=== PATIENT | female | born 1930 | race Caucasian/White ===

== ENCOUNTER 2017-02-08 11:01 | Observation (INO) ==
--- NOTE | 2017-02-08 11:30 | Cat Scan Report ---
CLINICAL INFORMATION: Acute left extremity weakness question CVA: Stroke COMPARISON: None. TECHNIQUE: 2.5 mm helical slices were obtained in the skull base to vertex. Following reconstruction, axial reformatted images were reviewed at bone and parenchymal windows. FINDINGS: The ventricles, sulci, fissures, and cisterns are enlarged compatible with moderate atrophy. There is mild disproportionate ventricular enlargement suggesting the possibility of superimposed normal pressure hydrocephalus. Volume loss has progressed since the 2015 comparison study. Mild chronic ischemic changes in the deep cerebral white matter. There is no intracerebral hemorrhage, mass effect or edema. Bone windows show no osseous abnormality IMPRESSION: Moderate atrophy arising from the 2015 study. There is slight disproportionate ventricular enlargement suggesting the possibility of superimposed normal pressure hydrocephalus. No evidence of intracerebral hemorrhage edema or other acute finding.. Interpreted and Authenticated by: Migel Carter 02/08/17
[2017-02-08] MEDS ORDERED: LABETALOL 5 MG/ML ML IV ONE (11:48)
[2017-02-08 11:49] LABS: Basophils # (Auto) 0.1 K/mcL (0.0-0.3); Basophils % (Auto) 0.8 % (0.0-2.0); Eosinophils # (Auto) 0.2 K/mcL (0.0-0.7); Eosinophils % (Auto) 1.8 % (0.0-7.0); Granulocytes % (Auto) 57.6 % (38.0-78.0); Lymphocytes # (Auto) 2.9 K/mcL (1.5-4.8); Lymphocytes % (Auto) 29.1 % (15.5-49.0); Mean Cell Volume 93.2 fL (80.0-100.0); Mean Corpuscular HGB Conc 33.7 g/dL (31.0-36.0); Mean Corpuscular Hemoglobin 31.4 pg (26.0-34.0); Monocytes % (Auto) 10.7 % (1.0-12.0); Platelet Count 293 K/mcL (140-440); RBC 4.16 M/mcL (4.00-5.20); Red Cell Distribution Width 13.4 % (11.5-14.5)
[2017-02-08 12:12] LABS: Partial Thromboplastin Time 28 sec (20-37)
[2017-02-08 12:15] LABS: ALT/SGPT 15 U/l (0-40); Albumin 4.5 gm/dL (3.2-5.2); Albumin/Globulin Ratio 1.4 (1.0-2.3); Alkaline Phosphatase 82 U/L (39-117); Blood Urea Nitrogen 20 mg/dl (8-23)
--- NOTE | 2017-02-08 12:42 | Emergency Department Note ---
Neuro HPI - General Chief Complaint: Stroke Symptoms Stated Complaint: stroke symptoms Time Seen by Provider: 02/08/17 11:10 Source: patient Mode of arrival: ambulatory Limitations: no limitations - History of Present Illness HPI Narrative: 87-year-old female brought in for CVA symptoms of left arm and left leg weakness at approximately 45 minutes from [facility]. Denies loss of consciousness. Is having some slow speech but no facial symptoms. Her son is here as well and corroborates time and history - Related Data Home Medications: Home Medications Medication Instructions Recorded Confirmed loratadine 10 mg tablet 10 mg PO QDAY 07/10/16 02/08/17 traZODone HCL [Desyrel] See Label Instructions PO QIDP PRN 02/08/17 02/08/17 Previous Rx's Medication Instructions Recorded tramadol 37.5 mg-acetaminophen 325 1 tab PO TID PRN #90 tab 10/16/16 mg tablet atenolol 50 mg tablet 50 mg PO QDAY 90 Days 01/22/17 Allergies/Adverse Reactions: Allergies Allergy/AdvReac Type Severity Reaction Status Date / Time No Known Drug Allergies Allergy Verified 01/24/17 16:11 Review of Systems All systems ED: reviewed and negative except as stated. Past Medical History - Past Medical History Attestation: Yes: The following information was validated with the patient. Medical history: Reports: arthritis, dementia, hyperlipidemia, osteoporosis, other (diverticulitis, paroxysmal SVT, insomnia, lung nodule) Surgical history ED: Reports: angioplasty/stent, cataract, hip replacement, hysterectomy, orthopedic, other (right knee, carpal tunnel) Psychiatric history: Reports: depression, other (fátima) - Social History smoking status: Never smoker Drug use: Reports: none Physical Exam Thin female no acute distress. Normocephalic atraumatic. Conjunctive clear sclerae nonicteric. No nasal discharge or congestion. Oropharynx is pink and moist. Neck is supple without lymphadenopathy or thyromegaly. No carotid bruit. Heart is regular rate and rhythm no murmur appreciated. Lungs are clear to auscultation bilaterally without wheezes rales rhonchi or respiratory distress. Abdomen soft nontender nondistended. No peritoneal signs or guarding. +2 radial pulse. +2 posterior tibialis pulse. Alert oriented able to answer questions appropriately-speech is slow however and it does seem to be some short-term memory deficits on close questioning. No dysarthria ataxia or tremor. Strength testing reveals mild weakness left shoulder and upper arm strength as well as left hip and leg strength. Face is symmetrical. Cranial nerves II through XII grossly intact. - General Limitations: no limitations Course Vital Signs Temperature 98.1 F 02/08/17 11:09 Pulse Rate 84 02/08/17 11:09 Respiratory Rate 18 02/08/17 11:09 Blood Pressure 197/100 02/08/17 11:09 Pulse Oximetry (%) 99 02/08/17 11:09 Temperature 98.6 F 02/08/17 16:01 Pulse Rate 80 02/08/17 16:01 Respiratory Rate 16 02/08/17 16:01 Blood Pressure 154/72 02/08/17 16:01 Pulse Oximetry (%) 96 02/08/17 16:01 Neuro Symptoms/Deficit - Lab Data Lab results reviewed: Yes I reviewed the patient's lab results. Result diagrams: 02/08/17 11:22 02/08/17 11:21 Lab Results 02/08/17 02/08/17 02/08/17 Range/Units 11:21 11:21 11:21 WBC (4.5-11.0) K/mcL RBC (4.00-5.20) M/mcL Hgb (12.0-15.0) g/dL Hct (36.0-48.0) % POC Hct 40.0 (36.0-48.0) % MCV (80.0-100.0) fL MCH (26.0-34.0) pg MCHC (31.0-36.0) g/dL RDW (11.5-14.5) % Plt Count (140-440) K/mcL MPV (7.4-10.4) fL Gran % (38.0-78.0) % Lymph % (Auto) (15.5-49.0) % [place] % (Auto) (1.0-12.0) % Eos % (Auto) (0.0-7.0) % Baso % (Auto) (0.0-2.0) % Gran # (1.8-8.0) K/mcL Lymph # (Auto) (1.5-4.8) K/mcL [place] # (Auto) (0.1-0.9) K/mcL Eos # (Auto) (0.0-0.7) K/mcL Baso # (Auto) (0.0-0.3) K/mcL POC PT PT 12.9 (11.9-14.5) sec POC INR INR 1.0 (0.9-1.1) APTT (20-37) sec POC Sodium 142 (133-145) mmol/L Sodium 143 (133-145) mmol/L POC Potassium 3.6 (3.3-5.1) mmol/L Potassium 3.8 (3.3-5.1) mmol/L POC Chloride 104 (96-108) mmol/L Chloride 100 (96-108) mmol/L Carbon Dioxide 23 (22-30) mmol/L POC Total CO2 27 (22-30) mmol/L Anion Gap 20.0 H (8-16) POC BUN 21 (8-23) mg/dl BUN 20 (8-23) mg/dl Creatinine 0.7 (0.6-1.1) mg/dl POC Creatinine 0.6 (0.6-1.1) mg/dl GFR Calculation 78 Glucose 92 (70-105) mg/dL POC Glucose 92 (70-105) mg/dL Calcium 9.9 (8.6-10.4) mg/dl POC WB Ioniz Calcium 1.15 L (1.16-1.32) mmol/L Total Bilirubin 0.5 (0.0-1.0) mg/dL AST 24 (0-37) U/l ALT 15 (0-40) U/l Alkaline Phosphatase 82 (39-117) U/L Troponin T < 0.01 (0-0.03) ng/ml Total Protein 7.8 (5.9-8.4) gm/dL Albumin 4.5 (3.2-5.2) gm/dL Globulin 3.3 (2.2-3.7) gm/dL Albumin/Globulin Ratio 1.4 (1.0-2.3) Urine Color Urine Appearance Urine pH (5.0-9.0) Ur Specific [place] (1.000-1.035) Urine Protein (NEG) mg/dL Urine Glucose (UA) (NEG) mg/dL Urine Ketones (NEG) mg/dL Urine Occult Blood (<0.03) mg/dL Urine Nitrate (NEG) Urine Bilirubin (NEG) mg/dL Urine Urobilinogen (NEG) mg/dL Ur Leukocyte Esterase (NEG) /uL Ur Culture Indicated? 02/08/17 02/08/17 02/08/17 Range/Units 11:22 11:22 13:18 WBC 9.8 (4.5-11.0) K/mcL RBC 4.16 (4.00-5.20) M/mcL Hgb 13.0 (12.0-15.0) g/dL Hct 38.7 (36.0-48.0) % POC Hct (36.0-48.0) % MCV 93.2 (80.0-100.0) fL MCH 31.4 (26.0-34.0) pg MCHC 33.7 (31.0-36.0) g/dL RDW 13.4 (11.5-14.5) % Plt Count 293 (140-440) K/mcL MPV 8.8 (7.4-10.4) fL Gran % 57.6 (38.0-78.0) % Lymph % (Auto) 29.1 (15.5-49.0) % [place] % (Auto) 10.7 (1.0-12.0) % Eos % (Auto) 1.8 (0.0-7.0) % Baso % (Auto) 0.8 (0.0-2.0) % Gran # 5.7 (1.8-8.0) K/mcL Lymph # (Auto) 2.9 (1.5-4.8) K/mcL [place] # (Auto) 1.0 H (0.1-0.9) K/mcL Eos # (Auto) 0.2 (0.0-0.7) K/mcL Baso # (Auto) 0.1 (0.0-0.3) K/mcL POC PT TNP PT (11.9-14.5) sec POC INR TNP INR (0.9-1.1) APTT 28 (20-37) sec POC Sodium (133-145) mmol/L Sodium (133-145) mmol/L POC Potassium (3.3-5.1) mmol/L Potassium (3.3-5.1) mmol/L POC Chloride (96-108) mmol/L Chloride (96-108) mmol/L Carbon Dioxide (22-30) mmol/L POC Total CO2 (22-30) mmol/L Anion Gap (8-16) POC BUN (8-23) mg/dl BUN (8-23) mg/dl Creatinine (0.6-1.1) mg/dl POC Creatinine (0.6-1.1) mg/dl GFR Calculation Glucose (70-105) mg/dL POC Glucose (70-105) mg/dL Calcium (8.6-10.4) mg/dl POC WB Ioniz Calcium (1.16-1.32) mmol/L Total Bilirubin (0.0-1.0) mg/dL AST (0-37) U/l ALT (0-40) U/l Alkaline Phosphatase (39-117) U/L Troponin T (0-0.03) ng/ml Total Protein (5.9-8.4) gm/dL Albumin (3.2-5.2) gm/dL Globulin (2.2-3.7) gm/dL Albumin/Globulin Ratio (1.0-2.3) Urine Color Yellow Urine Appearance Cloudy Urine pH 8.0 (5.0-9.0) Ur Specific [place] 1.013 (1.000-1.035) Urine Protein Neg (NEG) mg/dL Urine Glucose (UA) Negative (NEG) mg/dL Urine Ketones Neg (NEG) mg/dL Urine Occult Blood Neg (<0.03) mg/dL Urine Nitrate Neg (NEG) Urine Bilirubin Neg (NEG) mg/dL Urine Urobilinogen Neg (NEG) mg/dL Ur Leukocyte Esterase Neg (NEG) /uL Ur Culture Indicated? No - Radiology Data Radiology results reviewed: Yes I reviewed the patient's radiology results. CT the head without contrast shows no acute findings but possible chronic mild NPH - EKG Data EKG attestation: Yes I reviewed and interpreted this EKG. EKG results narrative: EKG shows a rate of 96 with a Q-wave in 3 and aVF as well as V1. No evidence of ischemia normal sinus rhythm Disposition Pt seen by ODD BUNDLE WORKER/PA only: No Clinical Impression: Hypertensive urgency TIA (transient ischemic attack) Qualifiers: Transient cerebral ischemia type: unspecified Qualified Code(s): G45.9 - Transient cerebral ischemic attack, unspecified Summary: Elevated blood pressure was treated with labetalol 20 mg IV Initial NIH was 11 . discussed case with tele-stroke neurologist who initially felt that she needed to have TPA-she was a candidate although she did have a rectal bleed several months ago, and may benefit despite her age. However, as her symptoms mostly resolved, he backed off this recommendation and recommended further stroke workup and monitoring inpatient. I discussed this case with Dr. Marte the hospitalist who agreed to accept patient for further care and workup Disposition: Xfer As Inpt ([facility]) Condition: Fair
--- NOTE | 2017-02-08 13:37 | Internal Med History&Physical ---
Medical - H&P: HPI Patient information: Note initiated : 02/08/17 at 1:34 pm Patient: Amarilis Rodriguez 87 y/o F admitted on for stroke symptoms. History of present illness: Ms. Rodriguez is a 87 year old white female who has a fairly recent history of cognitive decline and falls, which appear to be syncopal. She apparently has had some generalized weakness, for which she has been working with physical therapy. Today, she had an early appointment over at [facility], and when she got there she apparently was having some trouble walking, and perhaps having trouble controlling her left leg. She was subsequently evaluated in our emergency room for possible acute stroke. The ER obtained a consultation with tele-stroke, who felt that her symptoms were improving, and that this might be more of a TIA than a stroke. They recommended admission for further monitoring and testing. Unfortunately, the patient is a very poor historian. She cannot quite recall why she came in today. She says she does have weakness, but that it is generalized, and thinks it has been going on for quite some time. She denies any facial droop or slurred speech today or arm weakness. She thinks perhaps her left leg is a little weaker, and that she could not walk well today, and she generally can walk. But otherwise she really cannot pinpoint any specifically new symptoms today. Her granddaughter is in the room with her, and notes that she does have some memory issues. The granddaughter also notes that the patient has been declining fairly rapidly over the last year. She has had at least 2 syncopal episodes with injury, the cause of which has not been fully discovered. She did have a recent race steward that showed a few 1.8 second pauses, in addition to 1 run of V. tach and several runs of PSVT. Her doctors did not feel that those findings explained her syncopal episodes. Head CT from the ER did not show signs of acute stroke or hemorrhage. It was suggestive of possible normal pressure hydrocephalus. Otherwise, the patient is extraordinarily vague on questioning. She does not think that she has had recent fevers or chills. She has had a mild headache today. She denies new eye or ear symptoms, sore throat or cough, dysphagia, swollen glands. She does say that she occasionally has chest tightness and shortness of breath, which seems worse when she lies down, and better when she gets up and moves around a bit. She is being worked up with Dr. Montgomery of pulmonary for bronchiectasis, and thinks the symptoms are unchanged. She denies abdominal pain, nausea or vomiting, diarrhea or constipation, incontinence, dysuria, leg swelling. Medical History Clostridium difficile diarrhea (Acute) Gastroenteritis (Acute) Memory Loss (Acute) Atelectasis (Chronic) (10/05/2014-[place])Cicatrization atelectasis of the lingula Bronchitis, chronic (Chronic) bronchiectasis seen on CT scan Cardiomegaly (Chronic) Carpal tunnel syndrome (Chronic) Nerve conduction study 05/2013. 08/2012--right carpal tunnel op. Left not operated. Closed femur fracture (Chronic) S/P right 07/2010 with postop [facility] for several weeks, which was negative. Closed fibular fracture (Chronic) Fall with fibular fracture 04/22/2012, questionable rhythm-related. Degenerative arthritis (Chronic) Multi-joint; check bilateral nerve conduction to rule out carpal tunnel. Depression (Chronic) Diverticulosis of colon (Chronic) Colonoscopy 08/11/98--Dr. Collins--diverticuli and hemorrhoids. Patient declined rescope, but never had polyps. Hyperlipidemia (Chronic) Stablized with diet. Hypertension (Chronic) Insomnia (Chronic) Lumbar compression fracture (Chronic) T12 compression fracture shown on MRI 05/2011. Lung nodule (Chronic) Mild cognitive impairment (Chronic) Mycobacterium avium complex (Chronic) Past hx with low-grade persisting cough, stable chest CTon 03/2011, review by Dr. Grigsby 04/2011. Osteoporosis (Chronic) With MRI 05/2011 showing T12 compression fracture; updated bone density still in the osteoporosis range in the spine 05/2011 with reinstitution of Evista; vitamin D level stable in 2009. 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 Rheumatoid arteritis (Chronic) Syncope, near (Chronic) Hx of near syncopal falls resulting in injuries/fractures; episode of lightheadedness. Urticaria (Chronic) Varicose veins (Chronic) Hx; operated by Dr. Bryan 06/2003; has some residual, but stable with hygienic measures. Surgical History History of biopsy (Chronic) 01/16/2008 Benign fibrosed senescent fibroadenoma w/calcifications. History of cardiac cath (Chronic) History of carpal tunnel repair (Chronic) 08/[address] Roberson History of cataract surgery (Chronic) [facility] History of colonoscopy (Chronic 08/11/98) Showing diverticuli and hemorrhoids. Patient declined rescope, but never had polyps. History of hip surgery (Chronic) Left hip arthroplasty, right hip fracture History of hysterectomy (Chronic) History of oophorectomy (Chronic) Unilateral History of varicose vein ligation (Chronic) Repair Status post arthroscopic surgery of right knee (Chronic) Medication List atenolol 50 mg PO QDAY 90 days loratadine (Claritin) 10 mg PO QDAY tramadol-acetaminophen 37.5-325 mg (Ultracet) 1 tab PO TID PRN trazodone Take 1/2 - 1 tablet PO QHS Allergies/Adverse Reactions No Known Drug Allergies Allergy Family History Mother Alzheimer's disease Malignant neoplasm of colon Social History Patient lives in her own apartment at [facility], independent living side. She is . She is never used tobacco, alcohol, drugs. 1 of her sons lives here in [facility], as does her granddaughter. Reproductive History Total pregnancies: 5 Full term: 5 Medical - H&P: Meds Home Medications Medication Instructions Recorded Confirmed Type loratadine 10 mg tablet 10 mg PO QDAY 07/10/16 02/08/17 History tramadol 37.5 mg-acetaminophen 325 1 tab PO TID PRN #90 tab 10/16/16 02/08/17 Rx mg tablet atenolol 50 mg tablet 50 mg PO QDAY 90 Days 01/22/17 02/08/17 Rx traZODone HCL [Desyrel] See Label Instructions PO QIDP PRN 02/08/17 02/08/17 History Allergies Allergy/AdvReac Type Severity Reaction Status Date / Time No Known Drug Allergies Allergy Verified 01/24/17 16:11 Medical - H&P: Exam - Constitutional Vitals: Temp Pulse Resp BP Pulse Ox 98.1 F 94 H 19 149/70 97 02/08/17 11:09 02/08/17 13:16 02/08/17 13:16 02/08/17 13:16 08/24/17 13:16 On exam, she is awake and alert, but is rather slow to answer most questions. She seems to have some memory difficulties. Head: Normocephalic, atraumatic. Ears: TMs and canals are clear. Eyes: PERRLA, EOMI, anicteric. Pharynx: Pharynx is clear. Teeth are in good repair. Mucosa appears normal. Neck: Is supple, without obvious JVD, lymphadenopathy, thyromegaly, bruits. Cardiac exam: Shows regular rate and rhythm, with normal S1 and S2, without murmurs, rubs, gallops. Lungs: Are fairly clear to auscultation, with scattered crackles, but no rhonchi or wheezes. There is no accessory muscle use. Abdomen: Is soft and nontender, without obvious masses. Bowel sounds are normoactive. Extremities: Show no cyanosis, clubbing, edema. Dorsalis pedis and posterior tibial pulses are intact. Neurologic exam: The patient is alert and oriented, but quite forgetful, and relies on her family to fill in the history. Mood is calm, and she is cooperative. Cranial nerves are grossly intact. There is no obvious facial droop. Motor exam: She has about 4 to 4+ out of 5 strength for both hand traffic control technician, biceps and triceps strength. Hip flexors have about 4 out of 5 strength bilaterally. She seems to have 5 out of 5 dorsi and plantar flexion of both feet. She does have trouble with straight leg raise on the left, and cannot hold her leg up for more than about 5 seconds, compared with the right that she can hold up easily for more than 10 seconds. Cerebellar: There is no tremor. There is no pronator drift. Finger to finger exam is intact. Deep tendon reflexes: Are quite brisk, approximately 3+, at the biceps and patellae bilaterally. Toes are downgoing to plantar stimulation bilaterally. Sensory: Is intact to soft touch, on her face and arms and legs, bilaterally. Skin exam does not show any obvious rashes or other worrisome lesions. Medical - H&P: Reslt - Labs CBC & Chem 7: 02/08/17 11:22 02/08/17 11:21 Labs: Short CBC 02/08/17 Range/Units 11:22 WBC 9.8 (4.5-11.0) K/mcL Hgb 13.0 (12.0-15.0) g/dL Hct 38.7 (36.0-48.0) % Plt Count 293 (140-440) K/mcL BMP 02/08/17 11:21 Sodium 143 Potassium 3.8 Chloride 100 Carbon Dioxide 23 BUN 20 Creatinine 0.7 Glucose 92 Calcium 9.9 Cardiac Enzymes 02/08/17 Range/Units 11:21 Troponin T < 0.01 (0-0.03) ng/ml Liver Function 02/08/17 Range/Units 11:21 Total Bilirubin 0.5 (0.0-1.0) mg/dL AST 24 (0-37) U/l ALT 15 (0-40) U/l Alkaline Phosphatase 82 (39-117) U/L Albumin 4.5 (3.2-5.2) gm/dL February 08: Pro time is 12.9, INR 1.0, PTT 28 Anion gap is elevated at 20 Ionized calcium is low at 1.[address]: Shows moderate atrophy, with possible superimposed normal pressure hydrocephalus. No hemorrhage or edema. Mild chronic ischemic changes in the deep cerebral white matter noted. EKG shows normal sinus rhythm at a rate of about 95, left axis deviation, no acute appearing ST-T changes. Medical - H&P: A/P (1) Sick sinus syndrome Current visit: Yes Status: Chronic (2) TIA (transient ischemic attack) Current visit: Yes Status: Acute (3) Hypertensive urgency Current visit: Yes Status: Acute (4) Mild cognitive impairment Current visit: No Status: Chronic - Narrative A/P Narrative: #1. Neurologic. -Patient presents with signs and symptoms of possible stroke, with left-sided leg weakness, but it is very unclear from her history how acute the symptoms might be. She seems to think that it interfered with her ability to stand and walk today, which would be new for her. . Symptoms appear to be resolving, which would put this in the category of a TIA. Initial dry head CT is negative for stroke, but does suggest possible NPH. Tele- stroke was consulted, and they suggested admission for observation and further workup. Admit to telemetry. CT angiogram of the head and neck Start aspirin, and statin. Check lipids. Consider ESVIN inhibitor. Echocardiogram PT, OT, speech therapy evaluations. -History of mild cognitive impairment. CT is suggestive of possible NPH. Follow-up with PCP. She may deserve a neurology referral, to see if she could in fact have NPH, and if that can be causing some of her more recent neurologic symptoms. 2. Cardiac. -Recent cardiac monitoring suggested both pauses and occasional tachycardia mainly PSVT with one run of V. tach, suggestive of possible underlying sick sinus syndrome. Reportedly had a normal heart cath in 2006, and a treadmill in February 2010 that looked okay. She has had episodes of syncope in the past, sustaining fractures. -Blood pressure was quite elevated today, which is probably a result of her stroke. We will allow permissive hypertension this evening, as high as 220/120 is acceptable. I would consider lowering the dose of her beta-edu, to accommodate adding an ESVIN inhibitor, which might lower her future stroke risk. She may want to see a revenue stamp clerk at some point, to look into her cardiac rhythms further. 3. CODE STATUS: DNR, according to the patient and her granddaughter. Her son Chandan, has her POA. 4. DVT prophylaxis: Subcu Lovenox. #5. Pulmonary. Patient has received recent workup for what appears to be bronchiectasis. Monitor oxygen saturations while here. 6. Endocrine. History of osteoporosis with compression fractures. And should probably be maintained on both calcium and vitamin D supplementation. Her chart notes indicated she had previously been prescribed Evista, but I do not see that on her current med list. Evista would also increase her stroke risk, so should probably be avoided at this point. Today's visit took approximately 65 minutes, to review the patient's case with the ER MD, review her old records, interview and examine her, review plan of care with the patient and her granddaughter, and write orders.
[2017-02-08 13:43] LABS: Appearance,Urine CLOUDY; Bilirubin,Urine NEG (NEG); Color,Urine YELLOW; Glucose,Urine (UA) NEGATIVE (NEG); Leukocyte Esterase,Urine NEG /uL (NEG); Nitrate,Urine NEG (NEG); Protein,Urine NEG (NEG); Specific Gravity,Urine 1.013 (1.000-1.035); Urine Blood NEG mg/dL (<0.03); Urobilinogen,Urine NEG (NEG)
[2017-02-08] MEDS ORDERED: IOPAMIDOL 100 ML BOTTLE IJ ONE (13:57)
[2017-02-08] MEDS ORDERED: ASPIRIN 325 MG ENTERIC COATED TABLET PO ONE (14:30)
[2017-02-08] MEDS ORDERED: NALOXONE HCL 0.4 MG/ML VIAL IV PRN (14:30)
[2017-02-08] MEDS ORDERED: LORATADINE 10 MG TABLET PO PRN (14:30)
[2017-02-08] MEDS ORDERED: DOCUSATE SODIUM 100 MG CAPSULE PO PRN (14:30)
[2017-02-08] MEDS ORDERED: traMADol HCL/ACETAMINOPHEN 1 TAB TABLET PO PRN (14:30)
[2017-02-08] MEDS ORDERED: HYDROcodone/APAP 5/325MG TABLET PO PRN (14:30)
[2017-02-08] MEDS ORDERED: ACETAMINOPHEN 325 MG TABLET PO PRN (14:30)
[2017-02-08] MEDS ORDERED: ONDANSETRON 4 MG/2 ML VIAL IV PRN (14:30)
[2017-02-08] MEDS ORDERED: MAGNESIUM HYDROXIDE 30 ML ORAL.SUSP PO PRN (14:30)
[2017-02-08] MEDS ORDERED: traZODone HCL 50 MG TABLET PO PRN (14:30)
--- NOTE | 2017-02-08 17:29 | Cat Scan Report ---
CLINICAL INFORMATION: Stroke symptoms COMPARISON: None. TECHNIQUE: 80 cc of Isovue-300 were injected intravenously , and using SmartPrep to maximize cerebral arterial opacification, 0.625 mm helical slices were obtained from the skull base through the cerebral vertex. Following reconstruction , sagittal, coronal and axial reformatted images were processed and reviewed at multiple windows and levels. 3D volume rendered and MIP images were also obtained at an independent workstation. FINDINGS: The left vertebral artery is dominant and the diminutive right vertebral artery terminates as the posterior inferior cerebellar artery. 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 The sole arterial supply to the basilar artery is the dominant left vertebral artery. The basilar, both posterior cerebral, intracranial internal carotid, anterior and middle cerebral arteries and their branches are unremarkable. The superficial and deep cerebral veins and venous sinuses are all widely patent IMPRESSION: Negative exam Interpreted and Authenticated by: Migel Carter 02/08/17
--- NOTE | 2017-02-08 17:33 | Cat Scan Report ---
CLINICAL INFORMATION: Stroke COMPARISON: None. TECHNIQUE: 80 cc of Isovue-300 were injected intravenously followed by 40 cc of normal saline flush. Using SmartPrep, 0.625 helical slices were obtained from the thoracic aortic arch through the cowlitz of [place]ole. Following reconstruction, 2.5 mm sagittal, coronal and axial reformatted images, 3-D volume rendering and CPR images were constructed. FINDINGS: The thoracic aortic arch is normal in contour and caliber diffuse intimal thickening. Aortic branching is conventional. The brachiocephalic, both subclavian, common, internal and external carotid, and vertebral arteries are all widely patent. The right vertebral artery terminates as the right posterior inferior cerebellar artery. A dominant left vertebral artery is the sole supply to the basilar artery. The upper lobes of the lungs are included in the axial raw data. Scattered chronic nodules in both upper lobes are seen as before. Two of these are larger: 18 mm in the perimediastinal left upper lobe and 14 mm in the superior segment of the left lower lobe. These were compared to a chest CT from four months prior - 10/10/2016. IMPRESSION: 1. Dominant left vertebral artery with diminutive right vertebral artery which terminates as the right posterior inferior cerebral artery. The cerebral arterial supply the basilar artery is the dominant left vertebral artery. 2. Thoracic aortic arch is unremarkable with conventional aortic branching 3. All carotid, subclavian, left vertebral and brachiocephalic arteries are all unremarkable 4. Limited views of the upper lobes show increase in left upper lobe nodules since the comparison chest CT four months ago. Consider repeat chest CT Interpreted and Authenticated by: Migel Carter 02/08/17
[2017-02-08] MEDS: LISINOPRIL 5 MG TABLET PO SCH (20:41)
[2017-02-08] MEDS: ATORVASTATIN 20 MG TABLET PO SCH (20:41)
[2017-02-08] MEDS: 0.9 % SODIUM CHLORIDE 10 ML SYRINGE IV SCH (20:42)
[2017-02-09] MEDS: 0.9 % SODIUM CHLORIDE 10 ML SYRINGE IV SCH ×5 (05:30→20:04)
[2017-02-09 05:51] LABS: Basophils # (Auto) 0 K/mcL (0.0-0.3); Basophils % (Auto) 0.4 % (0.0-2.0); Eosinophils # (Auto) 0.3 K/mcL (0.0-0.7); Eosinophils % (Auto) 3.5 % (0.0-7.0); Granulocytes % (Auto) 67.6 % (38.0-78.0); Lymphocytes # (Auto) 1.5 K/mcL (1.5-4.8); Lymphocytes % (Auto) 16.6 % (15.5-49.0); Mean Cell Volume 93.8 fL (80.0-100.0); Mean Corpuscular Hemoglobin 31.9 pg (26.0-34.0); Monocytes # (Auto) 1.1 K/mcL (0.1-0.9); Monocytes % (Auto) 11.9 % (1.0-12.0); Platelet Count 253 K/mcL (140-440); RBC 3.79 M/mcL (4.00-5.20); Red Cell Distribution Width 13.3 % (11.5-14.5)
[2017-02-09 06:14] LABS: HDL Cholesterol 62 mg/dl (>40); LDL Cholesterol,Calculated 98 mg/dl (SEE CHART)
[2017-02-09 06:15] LABS: ALT/SGPT 11 U/l (0-40); Albumin 3.6 gm/dL (3.2-5.2); Albumin/Globulin Ratio 1.2 (1.0-2.3); Alkaline Phosphatase 73 U/L (39-117); Bilirubin,Direct < 0.2 mg/dL (0.0-0.3); Blood Urea Nitrogen 18 mg/dl (8-23); Gamma Glutamyl Transpeptidase 20 U/L (5-36); Magnesium 1.9 mg/dL (1.6-2.5); Uric Acid 4.5 mg/dL (2.5-8.0)
[2017-02-09] MEDS ORDERED: ASPIRIN 325 MG ENTERIC COATED TABLET PO SCH ×2 (09:00)
[2017-02-09] MEDS: ATENOLOL 50 MG TABLET PO SCH (09:44)
[2017-02-09] MEDS: LISINOPRIL 5 MG TABLET PO SCH ×2 (09:44→20:04)
[2017-02-09] MEDS: ENOXAPARIN 40 MG/0.4 ML SYRINGE SQ SCH (09:45)
[2017-02-09] MEDS: ASPIRIN 81 MG TAB.CHEW PO SCH (09:49)
--- NOTE | 2017-02-09 11:41 | Discharge Summary ---
Medical - DS: Prov Patient information: Note initiated : 02/09/17 at 11:41 am Service Date, if different from initiated Date: [] Patient: Amarilis Rodriguez 87 y/o F admitted on 02/08/17 for stroke symptoms. Chief Complaint: [] Date of admission: 02/08/17 13:56 Discharge date: 02/09/17 Primary care physician: Henrik Art Admitting clinician: Marita Can Attending physician on discharge: Marita Can Medical - DS: Meds - Discharge Medications Prescriptions: Atorvastatin [Lipitor] 10 mg PO HS #30 tablet Lisinopril [Zestril] 2.5 mg PO BID #60 tablet Active and Home Medications: Discharge medications: *Aspirin 81 mg daily *Lisinopril 2.5 mg p.o. twice daily, hold for low blood pressure Atenolol decreased to 25 mg daily *Lipitor 10 mg p.o. nightly Loratadine 10 mg daily Tramadol 37.5acetaminophen 325 mg 3 times daily as needed Trazodone nightly as needed, dose uncertain, probably 25 mg Previous home Medications: loratadine 10 mg tablet 10 mg PO QDAY 07/10/16 [History Confirmed 02/08/17 Last Taken 02/07/17 08:00] tramadol 37.5 mg-acetaminophen 325 mg tablet 1 tab PO TID PRN #90 tab 10/16/16 [ Rx Confirmed 02/08/17 Last Taken 02/07/17 08:00] atenolol 50 mg tablet 50 mg PO QDAY 90 Days 01/22/17 [Rx Confirmed 02/08/17 Last Taken 02/07/17 08:00] traZODone HCL [Desyrel] See Label Instructions PO QIDP PRN 02/08/17 [History Confirmed 02/08/17 Last Taken Unknown] Medical - DS: Hosp Hospital course: Mr. Rodriguez is a 87 year old F February 08, 2017: History of present illness: Ms. Rodriguez is a 87 year old white female who has a fairly recent history of cognitive decline and falls, which appear to be syncopal. She apparently has had some generalized weakness, for which she has been working with physical therapy. Today, she had an early appointment over at [facility], and when she got there she apparently was having some trouble walking, and perhaps having trouble controlling her left leg. She was subsequently evaluated in our emergency room for possible acute stroke. The ER obtained a consultation with tele-stroke, who felt that her symptoms were improving, and that this might be more of a TIA than a stroke. They recommended admission for further monitoring and testing. Unfortunately, the patient is a very poor historian. She cannot quite recall why she came in today. She says she does have weakness, but that it is generalized, and thinks it has been going on for quite some time. She denies any facial droop or slurred speech today or arm weakness. She thinks perhaps her left leg is a little weaker, and that she could not walk well today, and she generally can walk. But otherwise she really cannot pinpoint any specifically new symptoms today. Her granddaughter is in the room with her, and notes that she does have some memory issues. The granddaughter also notes that the patient has been declining fairly rapidly over the last year. She has had at least 2 syncopal episodes with injury, the cause of which has not been fully discovered. She did have a recent water truck driver that showed a few 1.8 second pauses, in addition to 1 run of V. tach and several runs of PSVT. Her doctors did not feel that those findings explained her syncopal episodes. Head CT from the ER did not show signs of acute stroke or hemorrhage. It was suggestive of possible normal pressure hydrocephalus. Otherwise, the patient is extraordinarily vague on questioning. She does not think that she has had recent fevers or chills. She has had a mild headache today. She denies new eye or ear symptoms, sore throat or cough, dysphagia, swollen glands. She does say that she occasionally has chest tightness and shortness of breath, which seems worse when she lies down, and better when she gets up and moves around a bit. She is being worked up with Dr. Montgomery of pulmonary for bronchiectasis, and thinks the symptoms are unchanged. She denies abdominal pain, nausea or vomiting, diarrhea or constipation, incontinence, dysuria, leg swelling. February 09: Hospital course: The patient was admitted with the above-noted symptoms. Today, her son is here , and notes she had definite left-sided weakness of both her arm and her leg yesterday. These have resolved today. Overnight the patient had no problems, other than occasional mild confusion. She has been up walking with a walker, and has done just fine. She continues to have some mild memory issues, and cannot really remember much about what happened yesterday. Otherwise, she denies any numbness, tingling, focal weakness today. I think she is back to normal. She otherwise denies fever chills, headaches or dizziness, chest pain or palpitations, shortness of breath, abdominal pain, nausea or vomiting, diarrhea or constipation or dysuria. On exam, she is awake and alert, more so than yesterday, but still seems to have trouble answering questions about her symptoms or her medications. She states repeatedly she does not want a lot of equipment to help her stay alive, and has no desire to live forever Temperature is 99.4 today, for uncertain reasons. Heart rate 88, respiratory rate 16, blood pressure 130/79, O2 saturation 97% on room air Head: Normocephalic, atraumatic. Neck: Is supple, without obvious JVD, lymphadenopathy, thyromegaly, bruits. Cardiac exam: Shows regular rate and rhythm, with normal S1 and S2, without murmurs, rubs, gallops. Lungs: Are fairly clear to auscultation, with scattered crackles, but no rhonchi or wheezes. Abdomen: Is soft and nontender, without obvious masses. Bowel sounds are normoactive. Extremities: Show no cyanosis, clubbing, edema. Dorsalis pedis and posterior tibial pulses are intact. Neurologic exam: The patient is alert and oriented, but quite forgetful, and relies on her family to fill in the history. Mood is calm, and she is cooperative. Cranial nerves are grossly intact. There is no obvious facial droop. Motor exam: She has about 4+ out of 5 strength for both hand sports marketing specialist, biceps and triceps strength. Hip flexors have about 4 out of 5 strength bilaterally. She seems to have 5 out of 5 dorsi and plantar flexion of both feet. Today she is able to lift both legs for more than 10 seconds, without any problems. Cerebellar: There is no tremor. There is no pronator drift. Finger to finger exam is intact. A/P Narrative: #1. Neurologic. -Patient presents with signs and symptoms of possible stroke, with left-sided leg weakness, but it is very unclear from her history how acute the symptoms might be. She seems to think that it interfered with her ability to stand and walk today, which would be new for her. . Symptoms appear to have resolved, which would put this in the category of a TIA. Initial dry head CT is negative for stroke, but does suggest possible NPH . Patient's heart rhythm has been stable on telemetry overnight. CT angiogram of the head and neck are essentially normal. Start aspirin, and statin. Lipid profile is normal. Dose lisinopril was added to her regimen, as this may help to prevent future stroke. Atenolol dose was cut in half, to accommodate the lisinopril. Echocardiogram still pending. PT, OT, speech therapy evaluations. She appears to be back to baseline today, but should have home health evaluation for possible ongoing physical therapy. We will also ask an RN to go over her medicines with her, to be sure she is taking them appropriately. Her son says he tries to stop by almost every day and he does fill her pillbox and tries to be sure she is taking them correctly. We discussed that it may be time to start considering a higher level of care, so that she is not alone so many hours a day. -History of mild cognitive impairment. CT is suggestive of possible NPH. Follow-up with PCP. She may deserve a neurology referral, to see if she could in fact have NPH, and if that can be causing some of her more recent neurologic symptoms. 2. Cardiac. -Recent cardiac monitoring suggested both pauses and occasional tachycardia mainly PSVT with one run of V. tach, suggestive of possible underlying sick sinus syndrome. Reportedly had a normal heart cath in 2006, and a treadmill in February 2010 that looked okay. She has had episodes of syncope in the past, sustaining fractures. -Blood pressure was quite elevated yesterday, but is back to normal today. . She may want to see a carpenter assistant installer at some point, to look into her cardiac rhythms further. 3. CODE STATUS: DNR, according to the patient and her granddaughter. Her son Chandan, has her POA. 4. DVT prophylaxis: Subcu Lovenox. #5. Pulmonary. Patient has received recent workup for what appears to be bronchiectasis. 6. Endocrine. History of osteoporosis with compression fractures. And should probably be maintained on both calcium and vitamin D supplementation. Her chart notes indicated she had previously been prescribed Evista, but I do not see that on her current med list. Evista would also increase her stroke risk, so should probably be avoided at this point. Approximately 40 minutes was spent today, reviewing patient's test results, interviewing and examining her, reviewing plan of care with the patient as well as her son and [id number], as well as our team, and writing orders. addendum The patient was in the process of being discharged, but got up to use the bedside commode. While having a bowel movement, she began to experience nausea and then lightheadedness and then actually slumped over for about 1 minute, according to nursing staff. When I arrived in the room, she was awake, and just a bit groggy. She recalls being nauseated. Blood pressure was initially about 140/90. The nurses got her back into bed, and then blood systolic blood pressure was noted to be in the mid 80s. The patient will be given a fluid bolus, and will have her rest in bed for the next couple of hours. We will then recheck her, and decide if she is well enough to return home today as planned. All of the above was reviewed with the patient's son and [id number]. They understand and agree to check back again later today. Discharge diagnosis: TIA with left-sided weakness, resolved. Memory loss. Possible NPH. - Time Spent with Patient Total time spent providing and/or coordinating discharge services: Greater than 30 minutes Medical - DS: Exam - Constitutional Vitals: Vital Signs Temp Pulse Pulse Resp BP BP BP 02/09/17 08:30 99.4 F H 88 16 130/79 02/09/17 04:36 99.3 F H 20 129/68 02/09/17 00:23 98.1 F 20 118/58 02/09/17 00:00 98.1 F 20 118/58 02/08/17 20:05 82 109/71 02/08/17 20:00 99.9 F H 20 109/71 02/08/17 18:54 85 02/08/17 18:03 127/72 02/08/17 16:01 98.6 F 80 16 154/72 02/08/17 15:02 77 159/84 02/08/17 14:15 98.8 F 16 170/79 02/08/17 14:09 98.8 F 16 170/79 02/08/17 14:07 98.8 F 78 16 170/79 02/08/17 14:04 98.1 F 94 H 19 149/70 Pulse Ox 02/09/17 08:30 97 02/09/17 04:36 96 02/09/17 00:23 95 02/09/17 00:00 95 02/08/17 20:05 93 02/08/17 20:00 93 02/08/17 18:54 93 02/08/17 18:03 02/08/17 16:01 96 02/08/17 15:02 98 02/08/17 14:15 96 02/08/17 14:09 96 02/08/17 14:07 96 02/08/17 14:04 97 Intake and Output 02/08/17 02/09/17 02/09/17 21:59 05:59 13:59 Intake Total 200 / 200 380 / 380 Output Total 775 / 775 175 / 175 Balance -575 / -575 205 / 205 Intake: Oral 200 / 200 380 / 380 Output: Void Amount 775 / 775 175 / 175 Other: Weight 122 lb 4.8 oz Medical - DS: Data Labs on day of discharge: Labs from last 24 hours 02/09/17 02/09/17 02/09/17 03:58 03:58 03:58 WBC 8.9 RBC 3.79 L Hgb 12.1 Hct 35.6 L MCV 93.8 MCH 31.9 MCHC 34.0 RDW 13.3 Plt Count 253 MPV 8.9 Gran % 67.6 Lymph % (Auto) 16.6 Butler % (Auto) 11.9 Eos % (Auto) 3.5 Baso % (Auto) 0.4 Gran # 6.0 Lymph # (Auto) 1.5 Butler # (Auto) 1.1 H Eos # (Auto) 0.3 Baso # (Auto) 0 Sodium 140 Potassium 3.6 Chloride 102 Carbon Dioxide 25 Anion Gap 13.0 BUN 18 Creatinine 0.6 GFR Calculation 83 Glucose 88 Uric Acid 4.5 Calcium 9.1 Phosphorus 3.7 Magnesium 1.9 Total Bilirubin 0.7 Direct Bilirubin < 0.2 GGT 20 AST 17 ALT 11 Alkaline Phosphatase 73 Lactate Dehydrogenase 203 Troponin T Total Protein 6.5 Albumin 3.6 Globulin 2.9 Albumin/Globulin Ratio 1.2 Triglycerides 109 110 Cholesterol 181 LDL Cholesterol, Calc 98 Non-HDL Cholesterol 119 HDL Cholesterol 62 02/08/17 17:07 WBC RBC Hgb Hct MCV MCH MCHC RDW Plt Count MPV Gran % Lymph % (Auto) Butler % (Auto) Eos % (Auto) Baso % (Auto) Gran # Lymph # (Auto) Butler # (Auto) Eos # (Auto) Baso # (Auto) Sodium Potassium Chloride Carbon Dioxide Anion Gap BUN Creatinine GFR Calculation Glucose Uric Acid Calcium Phosphorus Magnesium Total Bilirubin Direct Bilirubin GGT AST ALT Alkaline Phosphatase Lactate Dehydrogenase Troponin T < 0.01 Total Protein Albumin Globulin Albumin/Globulin Ratio Triglycerides Cholesterol LDL Cholesterol, Calc Non-HDL Cholesterol HDL Cholesterol February 08: Echocardiogram: Report is pending. CT angiogram of the head and neck: Shows dominant left vertebral artery with diminutive right vertebral artery. All other arteries are unremarkable. Limited views of the upper lobes show increase in left upper lobe nodule since the comparison chest CT 4 months ago. Consider follow-up chest CT. Pro time is 12.9, INR 1.0, PTT 28 Anion gap is elevated at 20 Ionized calcium is low at 1.[address]: Shows moderate atrophy, with possible superimposed normal pressure hydrocephalus. No hemorrhage or edema. Mild chronic ischemic changes in the deep cerebral white matter noted. EKG shows normal sinus rhythm at a rate of about 95, left axis deviation, no acute appearing ST-T changes. Next Urinalysis shows pH of 8.0, specific gravity 1.013, and is otherwise normal Nasal MRSA screen is negative. Medical - DS: A/P - Patient/Caregiver Discharge Instructions Activity: as per physical therapy Diet: Low Sodium (2gm) Additional Instructions: 1. TIA. Please start taking aspirin 81 mg each day. Also start lisinopril 2.5 mg twice a day, but you can hold this if your blood pressure is less than 110 systolic. Please decrease the dose of your atenolol to 25 mg once a day Start atorvastatin/Lipitor 10 mg each evening Please have your doctor look up the results of the echocardiogram that was done while you are here. We will have home health come out to your home to evaluate both your medications , and your physical therapy needs. Next 2. Possible normal pressure hydrocephalus. Please follow-up with your primary care physician, and ask for a referral to a neurologist to look into this further. 3. Lung nodules. These were noted on your CAT scan. Please have your doctor to review your test results. 4. We have a history of osteoporosis. I would consider taking a calcium and vitamin D supplement daily. Approximately 1000 mg of calcium, plus at least 1000 units of vitamin D. Discharge medications: *Aspirin 81 mg daily *Lisinopril 2.5 mg p.o. twice daily, hold for low blood pressure Atenolol decreased to 25 mg daily *Lipitor 10 mg p.o. nightly Loratadine 10 mg daily Tramadol 37.5acetaminophen 325 mg 3 times daily as needed Trazodone nightly as needed, dose uncertain, probably 25 mg Prescriptions: Atorvastatin [Lipitor] 10 mg PO HS #30 tablet Lisinopril [Zestril] 2.5 mg PO BID #60 tablet Other Amb Orders: OT Discharge Order Location: Determined By Patient Physical Therapy at Discharge - General Location: Determined By Patient ST Discharge Order Location: Unknown - Problem Maintenance (1) Sick sinus syndrome Status: Chronic (2) TIA (transient ischemic attack) Status: Acute Qualifiers: Transient cerebral ischemia type: unspecified Qualified Code(s): G45.9 - Transient cerebral ischemic attack, unspecified (3) Hypertensive urgency Status: Acute (4) Mild cognitive impairment Status: Chronic - Follow up Plan Follow up with: Henrik Art MD [Primary Care Provider] - (Dr. Art's office will contact you on Sunday02/12/17 after reviewing your hospital stay, to schedule a post hospital follow up appointment with you. If you do not hear from them by Sunday02/13/17 please contact them to schedule ) Disposition: Home Health Service Prognosis: Good Rehab Potential: Good I certify that the patient requires SNF services: No Overall status at discharge: patient is progressing back to baseline Medical - DS: Qual - VTE Deep Vein Thrombosis/Pulmonary Embolism Present on Admission: No
[2017-02-09] MEDS ORDERED: 0.9 % SODIUM CHLORIDE 1,000 ML IV ONE (14:26)
[2017-02-09] MEDS ORDERED: METOPROLOL TARTRATE 5 MG/5 ML VIAL IV ONE (14:55)
--- NOTE | 2017-02-09 19:01 | EKG Interpretations ---
DUNGEON MASTER: Santino Jorgensen MD ENCOUNTER DATE: 02/08/2017 FINDINGS: Sinus rhythm, 95 beats per minute. First-degree AV block, 220 msec. WJS: Job ID: [id number] Doc ID: [id number] Santino Jorgensen MD
--- NOTE | 2017-02-09 19:16 | Internal Med Progress Note ---
Medical - PN: Subj Patient information: Note initiated : 02/09/17 at 7:13 pm Patient: Amarilis Rodriguez 87 y/o F admitted on 02/08/17 for stroke symptoms. Interval history: Mr. Rodriguez is a 87 year old F February 08, 2017: History of present illness: Ms. Rodriguez is a 87 year old white female who has a fairly recent history of cognitive decline and falls, which appear to be syncopal. She apparently has had some generalized weakness, for which she has been working with physical therapy. Today, she had an early appointment over at [facility], and when she got there she apparently was having some trouble walking, and perhaps having trouble controlling her left leg. She was subsequently evaluated in our emergency room for possible acute stroke. The ER obtained a consultation with tele-stroke, who felt that her symptoms were improving, and that this might be more of a TIA than a stroke. They recommended admission for further monitoring and testing. Unfortunately, the patient is a very poor historian. She cannot quite recall why she came in today. She says she does have weakness, but that it is generalized, and thinks it has been going on for quite some time. She denies any facial droop or slurred speech today or arm weakness. She thinks perhaps her left leg is a little weaker, and that she could not walk well today, and she generally can walk. But otherwise she really cannot pinpoint any specifically new symptoms today. Her granddaughter is in the room with her, and notes that she does have some memory issues. The granddaughter also notes that the patient has been declining fairly rapidly over the last year. She has had at least 2 syncopal episodes with injury, the cause of which has not been fully discovered. She did have a recent dog day care attendant that showed a few 1.8 second pauses, in addition to 1 run of V. tach and several runs of PSVT. Her doctors did not feel that those findings explained her syncopal episodes. Head CT from the ER did not show signs of acute stroke or hemorrhage. It was suggestive of possible normal pressure hydrocephalus. Otherwise, the patient is extraordinarily vague on questioning. She does not think that she has had recent fevers or chills. She has had a mild headache today. She denies new eye or ear symptoms, sore throat or cough, dysphagia, swollen glands. She does say that she occasionally has chest tightness and shortness of breath, which seems worse when she lies down, and better when she gets up and moves around a bit. She is being worked up with Dr. Montgomery of pulmonary for bronchiectasis, and thinks the symptoms are unchanged. She denies abdominal pain, nausea or vomiting, diarrhea or constipation, incontinence, dysuria, leg swelling. February 09: Hospital course: The patient was admitted with the above-noted symptoms. Today, her son is here , and notes she had definite left-sided weakness of both her arm and her leg yesterday. These have resolved today. Overnight the patient had no problems, other than occasional mild confusion. She has been up walking with a walker, and has done just fine. She continues to have some mild memory issues, and cannot really remember much about what happened yesterday. Otherwise, she denies any numbness, tingling, focal weakness today. I think she is back to normal. She otherwise denies fever chills, headaches or dizziness, chest pain or palpitations, shortness of breath, abdominal pain, nausea or vomiting, diarrhea or constipation or dysuria. 02/09- patient had a syncopal episode while having a bowel movement. on telemetry monitoring she was found to be in A. fib with RVR. Patient remained unresponsive for at least 2 minute. discharge canceled and patient will be monitored overnight. ontinue rate control measures. - Constitutional Vitals: Vital Signs Temp Pulse Resp BP Pulse Ox 97.8 F 86 20 124/69 96 02/09/17 16:01 02/09/17 16:00 02/09/17 16:00 02/09/17 16:01 02/09/17 16:01 Period Temp Pulse Resp BP Sys/Millard Pulse Ox Last 24 Hr 97.8 F-99.9 F 74-88 16-20 100-149/51-79 93-98 Intake and Output 02/09/17 02/09/17 02/09/17 05:59 13:59 21:59 Intake Total 380 / 380 620 / 620 1000 / 1000 Output Total 175 / 175 250 / 250 125 / 125 Balance 205 / 205 370 / 370 875 / 875 Weight 122 lb 4.8 oz Patient Weight 02/10/17 05:59 Weight 122 lb 4.8 oz Intake & Output: Intake & Output 02/09/17 02/09/17 02/09/17 05:59 13:59 21:59 Intake Total 380 / 380 620 / 620 1000 / 1000 Output Total 175 / 175 250 / 250 125 / 125 Balance 205 / 205 370 / 370 875 / 875 Weight 122 lb 4.8 oz Intake: IV 1000 / 1000 Oral 380 / 380 620 / 620 Output: Void Amount 175 / 175 250 / 250 125 / 125 Other: Meal Lunch Percent of Meal Consumed 25% Feeding Ability Assist with Tray Set Up # Bowel Movements 1 Exam: fter 2 minutes of unresponsiveness state patient gradually ecame arousable however continues to be confused. upils symmetric irregular heart rate however converted to sinus over 30 minutes Medical - PN: Obj Da - Labs CBC & Chem 7: 02/09/17 03:58 02/09/17 03:58 Labs: Abnormal Lab Results 02/09/17 03:58 RBC 3.79 L Hct 35.6 L Morris # (Auto) 1.1 H Meds: Medications Acetaminophen (Tylenol) 650 mg PO Q6HP PRN PRN Reason: PAIN/FEVER > 101 Hydrocodone Bitart/Acetaminophen ([place] 5/325mg) 1 tab PO Q4HP PRN PRN Reason: Pain Aspirin (Aspirin) 81 mg PO DAILY [facility] Last Admin: 02/09/17 09:49 Dose: 81 mg Atenolol (Tenormin) 25 mg PO QDAY [facility] Last Admin: 02/09/17 09:44 Dose: 25 mg Atorvastatin Calcium (Lipitor) 20 mg PO HS [facility] Last Admin: 02/08/17 20:41 Dose: 20 mg Docusate Sodium (Colace) 100 mg PO BID PRN PRN Reason: Constipation Enoxaparin Sodium (Lovenox) 40 mg SQ DAILY [facility] Last Admin: 02/09/17 09:45 Dose: 40 mg Lisinopril (Zestril) 2.5 mg PO BID [facility] Last Admin: 02/09/17 09:44 Dose: 2.5 mg Loratadine (Claritin) 10 mg PO QDAY PRN PRN Reason: Allergy Symptoms Magnesium Hydroxide (Milk Of Magnesia) 30 ml PO DAILYP PRN PRN Reason: Constipation Naloxone HCl (Narcan) 0.1 mg IV Q2MIN PRN PRN Reason: Opiate Reversal Ondansetron HCl (Zofran) 4 mg IV Q4HP PRN PRN Reason: Nausea And Vomiting Sodium Chloride (Saline Flush) 10 ml IV Q8 [facility] Last Admin: 02/09/17 15:09 Dose: 10 ml Tramadol/Acetaminophen (Ultracet) 1 tab PO TID PRN PRN Reason: pain Trazodone HCl (Desyrel) 25 - 50 mg PO HSP PRN PRN Reason: Insomnia Medical - PN: A/P - Time Spent With Patient Total time spent is greater than 50% in coordination of care (as documented) at patient's floor/unit and/or counseling patient: 15 - 24 minutes (1) Episode of syncope Status: Chronic Assessment and plan: * syncope episode-ontinue telemetry monitoring. * a. fib RVR-reverted to sinus. Continue telemetry monitoring * weakness-continue physical therapy * underlying dementia-At baseline * hypertension-ontinue ESVIN inhibitor/half dose atenolol plan * Overnight telemetry monitoring * possible discharge in a.m. if clinically improved Current Visit: No Medical - PN: Qual - Stroke Onset of Symptoms Date: 02/06/17 Onset of Symptoms Time: 04:00 Symptom Onset Unknown: No - VTE Deep Vein Thrombosis/Pulmonary Embolism Present on Admission: No
--- NOTE | 2017-02-09 19:39 | EKG Interpretations ---
MACHINE INSTALLER: Santino Jorgensen MD DATE OF SERVICE: 02/09/2017 at 7:17 a.m. FINDINGS: Sinus rhythm, 75 beats per minute. WJS: Job ID: [id number] Doc ID: [id number] Santino Jorgensen MD
--- NOTE | 2017-02-09 19:43 | EKG Interpretations ---
PAYROLL AND BENEFITS SPECIALIST: Santino Jorgensen MD DATE OF SERVICE: 02/09/2017 at 2:52 p.m. TODAY: 02/09/2017 FINDINGS: 1. Atrial fibrillation with rapid ventricular rate, approximately 125 beats per minute. 2. Anteroseptal Q waves. 3. Anteroseptal Q waves, consider anteroseptal infarction versus lead placement. WJS: Job ID: [id number] Doc ID: [id number] Santino Jorgensen MD
[2017-02-09] MEDS: ATORVASTATIN 20 MG TABLET PO SCH (20:04)
--- NOTE | 2017-02-09 20:28 | EKG Interpretations ---
DATE OF ENCOUNTER: 02/08/2017 at 12:18 pm. TODAY IS: 02/09/2017. Sinus rhythm, 96 beats per minute. First-degree AV block, P-R interval 240 msec. Left anterior fascicular block. AVRIL: Job ID: [id number] Doc ID: [id number] Santino Jorgensen MD
[2017-02-10] MEDS: 0.9 % SODIUM CHLORIDE 10 ML SYRINGE IV SCH (05:51)
[2017-02-10 06:27] LABS: Basophils # (Auto) 0.1 K/mcL (0.0-0.3); Basophils % (Auto) 0.7 % (0.0-2.0); Eosinophils # (Auto) 0.3 K/mcL (0.0-0.7); Eosinophils % (Auto) 3.2 % (0.0-7.0); Granulocytes % (Auto) 63.4 % (38.0-78.0); Lymphocytes % (Auto) 21.5 % (15.5-49.0); Mean Cell Volume 92.2 fL (80.0-100.0); Mean Corpuscular HGB Conc 32.8 g/dL (31.0-36.0); Mean Corpuscular Hemoglobin 30.3 pg (26.0-34.0); Monocytes % (Auto) 11.2 % (1.0-12.0); Platelet Count 253 K/mcL (140-440); RBC 3.85 M/mcL (4.00-5.20); Red Cell Distribution Width 12.6 % (11.5-14.5)
[2017-02-10 06:45] LABS: ALT/SGPT 10 U/l (0-40); Albumin 3.6 gm/dL (3.2-5.2); Albumin/Globulin Ratio 1.3 (1.0-2.3); Alkaline Phosphatase 68 U/L (39-117); Bilirubin,Direct < 0.2 mg/dL (0.0-0.3); Blood Urea Nitrogen 14 mg/dl (8-23); Gamma Glutamyl Transpeptidase 20 U/L (5-36); Magnesium 1.9 mg/dL (1.6-2.5); Uric Acid 4.1 mg/dL (2.5-8.0)
[2017-02-10] MEDS: ATENOLOL 50 MG TABLET PO SCH (09:39)
[2017-02-10] MEDS: ENOXAPARIN 40 MG/0.4 ML SYRINGE SQ SCH (09:39)
[2017-02-10] MEDS: LISINOPRIL 5 MG TABLET PO SCH (09:39)
[2017-02-10] MEDS: ASPIRIN 81 MG TAB.CHEW PO SCH (09:39)
--- NOTE | 2017-02-10 10:10 | Discharge Summary ---
Medical - DS: Prov Patient information: Note initiated : 02/10/17 at 10:08 am Service Date, if different from initiated Date: [] Patient: Amarilis Rodriguez 87 y/o F admitted on 02/08/17 for stroke symptoms. Chief Complaint: [] Date of admission: 02/08/17 13:56 Discharge date: 02/10/17 Primary care physician: Henrik Art Medical - DS: Meds - Discharge Medications Prescriptions: Atorvastatin [Lipitor] 10 mg PO HS #30 tablet Lisinopril [Zestril] 2.5 mg PO BID #60 tablet Active and Home Medications: Home Medications loratadine 10 mg tablet 10 mg PO QDAY 07/10/16 [History Confirmed 02/08/17 Last Taken 02/07/17 08:00] tramadol 37.5 mg-acetaminophen 325 mg tablet 1 tab PO TID PRN #90 tab 10/16/16 [ Rx Confirmed 02/08/17 Last Taken 02/07/17 08:00] traZODone HCL [Desyrel] See Label Instructions PO QIDP PRN 02/08/17 [History Confirmed 02/08/17 Last Taken Unknown] Acetaminophen [Tylenol] 650 mg PO Q6HP PRN tablet 02/09/17 [Rx Last Taken Unknown] Aspirin 81 mg PO DAILY 02/09/17 [Rx Last Taken Unknown] Atenolol [Tenormin] 25 mg PO QDAY tablet 02/09/17 [Rx Last Taken Unknown] Atorvastatin [Lipitor] 10 mg PO HS #30 tablet 02/09/17 [Rx Last Taken Unknown] Lisinopril [Zestril] 2.5 mg PO BID #60 tablet 02/09/17 [Rx Last Taken Unknown] Medical - DS: Hosp Hospital course: please review details from discharge summary from 02/09. atient's discharge was delayed due to yncopal episode followed by A. fib with RVR which everted to sinus. No overnight significant events. Patient undergoing physical therapytolerating diet and ambulating. Family at bedside. Family agrees to take [facility] to [facility] and subsequently transfer to assisted living. Outpatient ST/PT ordered with home health services. Discharge diagnosis: weakness and fall,A. fib RVR - Time Spent with Patient Total time spent providing and/or coordinating discharge services: Greater than 30 minutes Medical - DS: Exam - Constitutional Vitals: Vital Signs Temp Pulse Pulse Resp BP BP Pulse Ox 02/10/17 08:00 98.6 F 24 H 159/83 98 02/10/17 07:40 18 02/10/17 04:00 99.3 F H 20 160/92 100 02/10/17 03:23 99.3 F H 20 160/92 100 02/10/17 00:30 94 02/10/17 00:20 95 02/10/17 00:10 94 02/10/17 00:01 136/70 94 02/10/17 00:00 94 02/09/17 23:50 93 02/09/17 23:43 124/74 02/09/17 23:37 97.9 F 86 16 124/74 96 02/09/17 23:06 157/78 02/09/17 22:01 125/59 02/09/17 20:01 113/60 02/09/17 19:41 105 H 97 02/09/17 19:21 98.9 F 92 H 22 139/68 97 02/09/17 18:01 146/71 02/09/17 17:03 142/71 96 02/09/17 16:01 97.8 F 124/69 96 02/09/17 16:00 98.3 F 86 20 141/75 98 02/09/17 15:46 128/66 96 02/09/17 15:31 141/63 98 02/09/17 15:26 141/71 02/09/17 15:21 149/77 02/09/17 15:01 135/79 95 02/09/17 14:46 79 119/57 95 02/09/17 14:31 82 100/53 95 02/09/17 14:28 103/51 02/09/17 14:20 106/54 02/09/17 12:25 98.9 F 74 18 142/76 98 02/09/17 10:16 112/75 Intake and Output 02/09/17 02/10/17 02/10/17 21:59 05:59 13:59 Intake Total 1240 / 1240 200 / 200 Output Total 125 / 125 500 / 500 325 / 325 Balance 1115 / 1115 -500 / -500 -125 / -125 Intake: IV 1000 / 1000 Oral 240 / 240 200 / 200 Output: Void Amount 125 / 125 500 / 500 325 / 325 Other: Meal Dinner Breakfast Percent of Meal Consumed 25% 50% Feeding Ability Assist with Tray Set Up Independent # Bowel Movements 3 Weight 123 lb 4.8 oz Medical - DS: Data Labs on day of discharge: Labs from last 24 hours 02/10/17 02/10/17 04:17 04:17 WBC 9.1 RBC 3.85 L Hgb 11.7 L Hct 35.5 L MCV 92.2 MCH 30.3 MCHC 32.8 RDW 12.6 Plt Count 253 MPV 8.8 Gran % 63.4 Lymph % (Auto) 21.5 Moca % (Auto) 11.2 Eos % (Auto) 3.2 Baso % (Auto) 0.7 Gran # 5.7 Lymph # (Auto) 2.0 Moca # (Auto) 1.0 H Eos # (Auto) 0.3 Baso # (Auto) 0.1 Sodium 142 Potassium 3.6 Chloride 105 Carbon Dioxide 25 Anion Gap 12.0 BUN 14 Creatinine 0.5 L GFR Calculation 88 Glucose 90 Uric Acid 4.1 Calcium 8.7 Phosphorus 2.9 Magnesium 1.9 Total Bilirubin 0.8 Direct Bilirubin < 0.2 GGT 20 AST 18 ALT 10 Alkaline Phosphatase 68 Lactate Dehydrogenase 181 Total Protein 6.3 Albumin 3.6 Globulin 2.7 Albumin/Globulin Ratio 1.3 Triglycerides 81 Medical - DS: A/P - Patient/Caregiver Discharge Instructions Activity: as per physical therapy Diet: Regular Diet (dietary modifications as per speech therapy recommendations) Additional Instructions: 1. TIA. Please start taking aspirin 81 mg each day. Also start lisinopril 2.5 mg twice a day, but you can hold this if your blood pressure is less than 110 systolic. Please decrease the dose of your atenolol to 25 mg once a day Start atorvastatin/Lipitor 10 mg each evening Please have your doctor look up the results of the echocardiogram that was done while you are here. We will have home health come out to your home to evaluate both your medications , and your physical therapy needs. Next 2. Possible normal pressure hydrocephalus. Please follow-up with your primary care physician, and ask for a referral to a neurologist to look into this further. 3. Lung nodules. These were noted on your CAT scan. Please have your doctor to review your test results. 4. We have a history of osteoporosis. I would consider taking a calcium and vitamin D supplement daily. Approximately 1000 mg of calcium, plus at least 1000 units of vitamin D. Discharge medications: *Aspirin 81 mg daily *Lisinopril 2.5 mg p.o. twice daily, hold for low blood pressure Atenolol decreased to 25 mg daily *Lipitor 10 mg p.o. nightly Loratadine 10 mg daily Tramadol 37.5acetaminophen 325 mg 3 times daily as needed Trazodone nightly as needed, dose uncertain, probably 25 mg Prescriptions: Atorvastatin [Lipitor] 10 mg PO HS #30 tablet Lisinopril [Zestril] 2.5 mg PO BID #60 tablet Other Amb Orders: OT Discharge Order Location: Determined By Patient Physical Therapy at Discharge - General Location: Determined By Patient ST Discharge Order Location: Unknown - Problem Maintenance (1) Episode of syncope Status: Chronic Qualifiers: Syncope type: unspecified Qualified Code(s): R55 - Syncope and collapse - Follow up Plan Follow up with: Henrik Art MD [Primary Care Provider] - (Dr. Art's office will contact you on Sunday02/12/17 after reviewing your hospital stay, to schedule a post hospital follow up appointment with you. If you do not hear from them by Sunday02/13/17 please contact them to schedule ) Disposition: Home Health Service Prognosis: Good Rehab Potential: Fair I certify that the patient requires SNF services: No Overall status at discharge: patient is back to baseline Medical - DS: Qual - VTE Deep Vein Thrombosis/Pulmonary Embolism Present on Admission: No
== END 2017-02-10 12:57 | disposition home health service (06) ==
LOC: ICU 11:01 → ED 11:01 → ICU 13:58
PROVIDERS: ADMIT Internal Medicine; ATTEND Internal Medicine

== ENCOUNTER 2017-10-26 10:30 | Inpatient (IN) ==
[2017-10-26] MEDS ORDERED: CELECOXIB 200 MG CAPSULE PO SCH (10:57)
[2017-10-26] MEDS ORDERED: ceFAZolin 1 GM VIAL IV SCH (10:57)
[2017-10-26] MEDS ORDERED: PREGABALIN 75 MG CAPSULE PO SCH (10:57)
[2017-10-26] MEDS ORDERED: oxyCODONE 10 MG TAB.ER.12H PO SCH (10:57)
[2017-10-26] MEDS ORDERED: ACETAMINOPHEN 500 MG TABLET PO SCH (10:57)
--- NOTE | 2017-10-26 11:23 | XRay Report ---
CLINICAL INFORMATION: Preop COMPARISON: 10/04/[address] film [address] chest CT from 10/10/2016 FINDINGS: Moderate cardiomegaly is unchanged. Mediastinum and pulmonary vessels are normal. Moderate chronic bronchitis with scattered scarring granulomas in both lungs from the right lung seen as before no acute disease IMPRESSION: No acute disease Mild cardiomegaly, chronic bronchitis and scattered scarring/granulomas in both lungs - as previously seen. It should also be remembered that from CT, the patient also has tubular bronchiectasis in the lingula, left lower lobe and right middle lobe predisposing to future infection Interpreted and Authenticated by: Migel Carter 10/26/17
[2017-10-26 11:29] LABS: Basophils # (Auto) 0 K/mcL (0.0-0.3); Basophils % (Auto) 0.3 % (0.0-2.0); Eosinophils # (Auto) 0.3 K/mcL (0.0-0.7); Granulocytes % (Auto) 70.2 % (38.0-78.0); Lymphocytes # (Auto) 1.6 K/mcL (1.5-4.8); Lymphocytes % (Auto) 15.7 % (15.5-49.0); Mean Cell Volume 91.3 fL (80.0-100.0); Mean Corpuscular HGB Conc 33.4 g/dL (31.0-36.0); Mean Corpuscular Hemoglobin 30.5 pg (26.0-34.0); Monocytes # (Auto) 1.1 K/mcL (0.1-0.9); Monocytes % (Auto) 10.8 % (1.0-12.0); Platelet Count 279 K/mcL (140-440); RBC 3.98 M/mcL (4.00-5.20); Red Cell Distribution Width 13.6 % (11.5-14.5)
[2017-10-26 11:46] LABS: Blood Urea Nitrogen 24 mg/dl (8-23)
[2017-10-26] MEDS ORDERED: KETOROLAC 30 MG, ROPIVACAINE HCL/PF 49.5 ML, EPINEPHrine 0.5 MG, 0.9 % SODIUM CHLORIDE ... IV SCH (12:27)
[2017-10-26 13:26] LABS: Appearance,Urine CLEAR; Bilirubin,Urine NEG (NEG); Color,Urine YELLOW; Glucose,Urine (UA) NEGATIVE (NEG); Leukocyte Esterase,Urine NEG /uL (NEG); Protein,Urine NEG (NEG); Specific Gravity,Urine 1.016 (1.000-1.035); Urine Blood NEG mg/dL (<0.03); Urobilinogen,Urine NEG (NEG)
[2017-10-26] MEDS ORDERED: LIDOCAINE HCL/PF 100 MG/5 ML SYRINGE IV ONE (14:50)
[2017-10-26] MEDS ORDERED: PHENYLEPHRINE 10 MG/ML VIAL ONE (14:50)
[2017-10-26] MEDS ORDERED: DEXAMETHASONE 10 MG/ML VIAL ONE (14:50)
[2017-10-26] MEDS ORDERED: ePHEDrine 50 MG/ML AMPUL IV ONE (14:50)
[2017-10-26] MEDS ORDERED: PROPOFOL 200 MG/20 ML VIAL IV ONE (14:50)
[2017-10-26] MEDS ORDERED: fentaNYL 100 MCG/2 ML VIAL IV ONE (14:50)
[2017-10-26] MEDS ORDERED: VERAPAMIL 2.5 MG/ML VIAL IV ONE (14:50)
[2017-10-26] MEDS ORDERED: ROCURONIUM 10 MG/ML ML IV ONE (14:50)
--- NOTE | 2017-10-26 15:57 | Brief Operative Note ---
Date of procedure: 10/26/17 Pre-op diagnosis: left hip femoral neck fx Post-op diagnosis: same Procedure: left hip cemented luis arthroplasty Grafts/Implants: Yes Anesthesia: GETA Surgeon: López Zaidi Financial Sales Assistant: Rashid Hall Estimated blood loss (cc): 150 Specimens Removed/Pathology: none sent Condition: stable Disposition: PACU
[2017-10-26] MEDS ORDERED: ONDANSETRON 4 MG/2 ML VIAL IV PRN ×2 (15:58→16:20)
[2017-10-26] MEDS ORDERED: POLYETHYLENE GLYCOL 3350 17 GM PACKET PO PRN ×2 (15:58→16:01)
[2017-10-26] MEDS ORDERED: TEMAZEPAM 15 MG CAPSULE PO PRN (15:58)
[2017-10-26] MEDS ORDERED: TRANEXAMIC ACID 1,000 MG/10 ML VIAL IV ONE (15:58)
[2017-10-26] MEDS ORDERED: BISACODYL 10 MG SUPP.RECT PR PRN (15:58)
[2017-10-26] MEDS ORDERED: HYDROmorphone 2 MG/ML VIAL IV PRN (15:58)
[2017-10-26] MEDS ORDERED: FLEETS ADULT ENEMA PR PRN (15:58)
[2017-10-26] MEDS ORDERED: MAGNESIUM HYDROXIDE 30 ML ORAL.SUSP PO PRN (15:58)
[2017-10-26] MEDS ORDERED: KETOROLAC 15 MG/ML VIAL IV PRN (15:58)
[2017-10-26] MEDS ORDERED: BENZOCAINE/MENTHOL 1 LOZENGE PO PRN (15:58)
[2017-10-26] MEDS ORDERED: ACETAMINOPHEN 325 MG TABLET PO PRN ×2 (15:58→16:01)
[2017-10-26] MEDS ORDERED: traMADol HCL/ACETAMINOPHEN 1 TAB TABLET PO PRN (16:01)
[2017-10-26] MEDS ORDERED: NAPROXEN 250 MG TABLET PO PRN (16:01)
[2017-10-26] MEDS ORDERED: traZODone HCL 50 MG TABLET PO PRN (16:01)
[2017-10-26] MEDS ORDERED: diphenhydrAMINE 25 MG CAPSULE PO PRN (16:01)
[2017-10-26] MEDS ORDERED: GENTAMICIN SULFATE 800 MG/20 ML VIAL IR ONE (16:10)
[2017-10-26] MEDS ORDERED: SODIUM BICARBONATE PO SCH (16:15)
[2017-10-26] MEDS ORDERED: [UNRECOGNIZED DRUG - OTHER] PO SCH (16:15)
[2017-10-26] MEDS ORDERED: fentaNYL 100 MCG/2 ML VIAL IV PRN (16:20)
[2017-10-26] MEDS ORDERED: IPRATROPIUM/ALBUTEROL 3 ML AMPUL.NEB NEB PRN (16:20)
[2017-10-26] MEDS ORDERED: MEPERIDINE 25 MG/ML SYRINGE IV PRN (16:20)
[2017-10-26] MEDS ORDERED: LACTATED RINGERS 1,000 ML IV SCH (16:30)
--- NOTE | 2017-10-26 17:05 | XRay Report ---
CLINICAL INFORMATION: Reason for Exam:Post-Op Total Hip COMPARISON: None. FINDINGS: Left hip prostheses is anatomically aligned. Older right hip prostheses is also anatomically aligned without evidence of loosening or infection. Old fracture of the left pubic symphysis seen - as before. IMPRESSION: Left hip prostheses anatomically aligned Interpreted and Authenticated by: Migel Carter 10/26/17
[2017-10-26] MEDS: 0.45 % SODIUM CHLORIDE 1,000 ML IV SCH (17:15)
[2017-10-26] MEDS: ASPIRIN 325 MG ENTERIC COATED TABLET PO SCH (22:15)
[2017-10-26] MEDS: traMADol HCL/ACETAMINOPHEN 1 TAB TABLET PO PRN (22:15)
[2017-10-26] MEDS: DOCUSATE SODIUM 100 MG CAPSULE PO SCH (22:18)
[2017-10-26] MEDS: SENNOSIDES 1 TABLET PO SCH (22:18)
[2017-10-26] MEDS: 0.9 % SODIUM CHLORIDE 10 ML SYRINGE IV SCH (22:22)
[2017-10-27] MEDS: 0.45 % SODIUM CHLORIDE 1,000 ML IV SCH ×3 (03:30→18:02)
[2017-10-27] MEDS: 0.9 % SODIUM CHLORIDE 10 ML SYRINGE IV SCH ×3 (06:08→23:25)
[2017-10-27] MEDS: HYDROcodone/APAP 10/325MG TABLET PO PRN ×4 (06:55→17:54)
--- NOTE | 2017-10-27 08:28 | Orthopedic Progress Note ---
Subjective Patient information: Note initiated : 10/27/17 at 8:27 am Service Date, if different from initiated Date: [] Patient: Amarilis Rodriguez 87 y/o F admitted on 10/26/17 for Percutaneous Pinning of Left Femoral Neck Fracture. Chief Complaint: [] Pt is stable this morning on post operative day 1 without any significant concerns or complaints. Patients vital signs have remained stable. Patients dressing is dry and is grossly instact from a neurovascular and motor standpoint. Patients 10 point ROS is otherwise negative. Objective Vital signs: Vital Signs Temp Pulse Pulse Resp BP BP Pulse Ox 10/27/17 06:56 97.9 F 18 150/81 92 10/27/17 05:02 97.9 F 90 20 154/72 92 10/27/17 05:00 92 10/27/17 03:00 91 10/27/17 01:00 94 10/27/17 00:13 97.5 F 95 H 16 127/76 96 10/26/17 23:00 96 10/26/17 22:09 88 18 95 10/26/17 21:00 93 10/26/17 20:00 98.6 F 88 18 115/71 92 10/26/17 19:00 97 10/26/17 18:22 75 126/73 100 10/26/17 17:58 99 10/26/17 16:41 98.1 F 84 14 160/80 92 10/26/17 16:28 97.8 F 82 18 159/85 99 10/26/17 16:23 82 150/74 99 10/26/17 16:18 97.2 F 85 18 145/100 100 10/26/17 16:13 97.6 F 84 16 128/90 100 10/26/17 14:07 91 H 144/99 96 10/26/17 13:52 98 H 159/100 97 10/26/17 12:00 98.9 F 18 170/85 95 Intake and Output 10/26/17 10/27/17 10/27/17 21:59 05:59 13:59 Intake Total 1000 / 1000 1000 / 1000 Output Total 450 / 450 500 / 500 Balance 550 / 550 500 / 500 Intake: IV 1000 / 1000 Sodium Chloride 0.45% 1,000 ml 1000 / 1000 @ 100 mls/hr IV .Q10H COUNTS INCLUDE 234 BEDS AT [facility] Rx#: [id number] IV - Manual Only 1000 / 1000 Output: Urine Catheter Amount 450 / 450 500 / 500 Other: Meal HS Snack-vanilla pudding Nourishment/Supplement Percent of Meal Consumed 100% 50% Weight 124 lb 8 oz Intake & Output: Intake & Output 10/26/17 10/27/17 10/27/17 21:59 05:59 13:59 Intake Total 1000 / 1000 1000 / 1000 Output Total 450 / 450 500 / 500 Balance 550 / 550 500 / 500 Weight 124 lb 8 oz Intake: IV 1000 / 1000 Sodium Chloride 0.45% 1,000 ml 1000 / 1000 @ 100 mls/hr IV .Q10H [facility] Rx#: [id number] IV - Manual Only 1000 / 1000 Output: Urine Catheter Amount 450 / 450 500 / 500 Other: Meal HS Snack-vanilla pudding Nourishment/Supplement Percent of Meal Consumed 100% 50% Incision: Yes healing Incision clean and dry: Yes Dressing: Yes clean Weight bearing status: as tolerated Neurological exam IM: Yes motor sensory intact, Yes neurovascular intact Extremities exam IM: Yes Foot pink and warm, Yes neurovascular intact - Labs CBC & BMP: 10/27/17 04:34 10/26/17 11:01 Labs: Orthopedic Labs 10/26/17 11:13 PT 13.3 INR 1.0 10/27/17 10/26/17 04:34 11:01 Hgb 12.1 Hct 32.6 L 36.3 Assessment and Plan (1) History of hemiarthroplasty of left hip The patient has been educated regarding dressing care, Physical Therapy recommendations, home exercises, restrictions, and follow up appointments. The patient has had all necessary DME prescribed. The patient has remained relatively stable during their hospital course. Status: Acute
--- NOTE | 2017-10-27 08:31 | Discharge Summary ---
Ortho Discharge - ALY - Patient Instructions Diet: Regular Diet Activity: activity as tolerated, weight bearing as tolerated Total Hip Protocol: Follow activity instructions as provided by Physical Therapy. Dressing Care: May shower in 3 days, Aquacel Ag - leave on for 5 days - Problem Maintenance (1) History of hemiarthroplasty of left hip Status: Acute - Follow Up Plan Disposition: Xfer SNF Prognosis: Good Rehab Potential: Good I certify that the patient requires SNF services: Yes (High fall risk and requires ADL assistance for 2-3 weeks) Overall status at discharge: patient is progressing back to baseline - Orders For Discharge Prescriptions: Aspirin [Ecotrin] 325 mg PO BID #60 tab.ec Docusate Sodium [Colace] 100 mg PO BID #60 cap HYDROcodone/APAP 10/325MG [Eva 10-325Mg] 1 - 2 tab PO Q4HP PRN #60 tab PRN Reason: Pain Level 3-6
[2017-10-27] MEDS ORDERED: ASPIRIN 81 MG TAB.CHEW PO SCH (09:00)
[2017-10-27] MEDS: LORATADINE 10 MG TABLET PO SCH (10:00)
[2017-10-27] MEDS: ASPIRIN 325 MG ENTERIC COATED TABLET PO SCH ×2 (10:00→22:21)
[2017-10-27] MEDS: LACTOBACILLUS 1 CAPSULE PO SCH (10:00)
[2017-10-27] MEDS: DOCUSATE SODIUM 100 MG CAPSULE PO SCH ×2 (10:01→22:21)
[2017-10-27] MEDS: MULTIVIT,THER IRON,CA,FA & MIN 1 TABLET PO SCH (10:01)
[2017-10-27] MEDS: ATENOLOL 50 MG TABLET PO SCH (10:01)
[2017-10-27] MEDS: OLODATEROL HCL INH SCH (10:58)
[2017-10-27] MEDS: [UNRECOGNIZED DRUG - OTHER] INH SCH (10:58)
[2017-10-27] MEDS: DULoxetine 30 MG CAPSULE PO SCH (10:58)
[2017-10-27 20:20] LABS: Appearance,Urine HAZY; Bacteria,Urine FEW /hpf (0); Bilirubin,Urine NEG (NEG); Color,Urine AMBER; Glucose,Urine (UA) NEGATIVE (NEG); Leukocyte Esterase,Urine NEG /uL (NEG); Mucus,Urine MANY /hpf (0); Protein,Urine NEG (NEG); Specific Gravity,Urine 1.018 (1.000-1.035); Urine Blood 0.03 mg/dL (<0.03); Urine Hyaline Cast 21 /lpf (0-2); Urine RBC 22 /hpf (0-1); Urine Squamous Epithelial Cell < 1 /hpf (0-4); Urine Transitional Epi Cells < 1 /hpf (0-2); Urine WBC 4 /hpf (0-4)
[2017-10-27] MEDS: traMADol HCL/ACETAMINOPHEN 1 TAB TABLET PO PRN (22:21)
[2017-10-27] MEDS: SENNOSIDES 1 TABLET PO SCH (22:21)
[2017-10-28] MEDS: 0.45 % SODIUM CHLORIDE 1,000 ML IV SCH ×5 (00:02→18:25)
[2017-10-28] MEDS: HYDROcodone/APAP 10/325MG TABLET PO PRN ×3 (02:26→17:17)
[2017-10-28] MEDS: 0.9 % SODIUM CHLORIDE 10 ML SYRINGE IV SCH ×3 (05:45→20:25)
--- NOTE | 2017-10-28 09:54 | Orthopedic Progress Note ---
Subjective Patient information: Note initiated : 10/28/17 at 9:52 am Service Date, if different from initiated Date: [] Patient: Amarilis Rodriguez 87 y/o F admitted on 10/26/17 for Percutaneous Pinning of Left Femoral Neck Fracture. Chief Complaint: [alert and baseline confusion as she walked 60 feet yesterday and feeling better today and minimal 2/10 pain] Objective Vital signs: Vital Signs Temp Pulse Resp BP Pulse Ox 10/28/17 06:34 98.2 F 16 149/80 96 10/28/17 04:00 97.4 F 74 16 146/77 96 10/28/17 03:00 95 10/28/17 01:00 94 10/27/17 23:52 97.6 F 75 14 174/97 98 10/27/17 23:00 98 10/27/17 21:00 96 10/27/17 19:45 97.8 F 85 18 144/75 96 10/27/17 19:00 96 10/27/17 17:00 93 10/27/17 15:49 98.3 F 16 142/76 93 10/27/17 15:00 93 10/27/17 13:00 94 10/27/17 11:00 92 Intake and Output 10/27/17 10/28/17 10/28/17 21:59 05:59 13:59 Intake Total 850 / 850 1350 / 1350 300 / 300 Output Total 275 / 275 800 / 800 Balance 575 / 575 550 / 550 300 / 300 Intake: IV 1000 / 1000 Sodium Chloride 0.45% 1,000 ml 1000 / 1000 @ 100 mls/hr IV .Q10H [facility] Rx#: [id number] Oral 850 / 850 350 / 350 300 / 300 Output: Urine Catheter Amount 275 / 275 800 / 800 Other: Weight 127 lb Intake & Output: Intake & Output 10/27/17 10/28/17 10/28/17 21:59 05:59 13:59 Intake Total 850 / 850 1350 / 1350 300 / 300 Output Total 275 / 275 800 / 800 Balance 575 / 575 550 / 550 300 / 300 Weight 127 lb Intake: IV 1000 / 1000 Sodium Chloride 0.45% 1,000 ml 1000 / 1000 @ 100 mls/hr IV .Q10H [facility] Rx#: [id number] Oral 850 / 850 350 / 350 300 / 300 Output: Urine Catheter Amount 275 / 275 800 / 800 Incision: Yes healing Incision clean and dry: Yes Dressing: Yes clean Weight bearing status: full Neurological exam IM: Yes alert, Yes neurovascular intact Extremities exam IM: Yes pedal edema, Yes Foot pink and warm (dc tomorrow and will need more po intake will need to a nh), Yes neurovascular intact - Labs CBC & BMP: 10/27/17 04:34 10/26/17 11:01 Labs: Orthopedic Labs 10/26/17 11:13 PT 13.3 INR 1.0 10/27/17 10/26/17 04:34 11:01 Hgb 12.1 Hct 32.6 L 36.3
[2017-10-28] MEDS: DULoxetine 30 MG CAPSULE PO SCH (10:45)
[2017-10-28] MEDS: LACTOBACILLUS 1 CAPSULE PO SCH (10:48)
[2017-10-28] MEDS: DOCUSATE SODIUM 100 MG CAPSULE PO SCH ×2 (10:48→20:19)
[2017-10-28] MEDS: ASPIRIN 325 MG ENTERIC COATED TABLET PO SCH ×2 (10:48→20:19)
[2017-10-28] MEDS: ATENOLOL 50 MG TABLET PO SCH (10:49)
[2017-10-28] MEDS: MULTIVIT,THER IRON,CA,FA & MIN 1 TABLET PO SCH (10:49)
[2017-10-28] MEDS: LORATADINE 10 MG TABLET PO SCH (10:51)
[2017-10-28] MEDS: [UNRECOGNIZED DRUG - OTHER] INH SCH (11:36)
[2017-10-28] MEDS: OLODATEROL HCL INH SCH (11:36)
[2017-10-28] MEDS: SENNOSIDES 1 TABLET PO SCH (20:20)
[2017-10-29] MEDS: HYDROcodone/APAP 10/325MG TABLET PO PRN ×4 (04:12→23:32)
[2017-10-29] MEDS: 0.45 % SODIUM CHLORIDE 1,000 ML IV SCH ×3 (04:14→23:33)
[2017-10-29] MEDS: 0.9 % SODIUM CHLORIDE 10 ML SYRINGE IV SCH ×3 (05:59→22:14)
--- NOTE | 2017-10-29 07:16 | Operative Note ---
DATE OF OPERATION: 10/26/2017 PREOPERATIVE DIAGNOSIS: Left hip femoral neck fracture, impacted. POSTOPERATIVE DIAGNOSIS: Left hip femoral neck fracture, impacted. PROCEDURE: Left hip cemented hemiarthroplasty. SURGEON: López Zaidi MD LIQU[employer] FLAVOR COMPOUNDER: Rashid Hall PA-C ANESTHESIA: General LMA anesthesia. COMPLICATIONS: None. DESCRIPTION OF PROCEDURE: The patient was brought to the operating room and put to sleep with general LMA anesthesia. Once asleep, the patient had the left leg sterilely prepped and draped in the usual sterile fashion. A timeout was performed and this was confirmed as the operative site by initials, x-rays and consent form. Once this was done, we then made a superior posterior approach to the hip, identified the hip joint, T'd the capsule and dislocated the hip superior posteriorly. Once this was done, we then made the neck cut just below the fracture site and broached up to the size of 5 stem. A 5 cemented stem was then put into place after trial which was very stable throughout the range of motion. We cemented into place a size 5 cemented hemiarthroplasty stem. Once cement was dry and we put this in 15 degrees of anteversion, we then placed a neutral neck length, 46 mm ball. This was very stable throughout the range of motion. We then irrigated after reducing the final implants. The capsule was closed and the muscle fascia was closed with #1 Stratafix, 0 Vicryl for the deep fascial layer, 2-0 Vicryl and adhesive closure. The patient tolerated this well without complication. Sterile bandage was applied. Hip was very stable throughout the range of motion. RBH:eve Job ID: [id number] Doc ID: [id number] López Zaidi MD
[2017-10-29] MEDS: LACTOBACILLUS 1 CAPSULE PO SCH (10:00)
[2017-10-29] MEDS: MULTIVIT,THER IRON,CA,FA & MIN 1 TABLET PO SCH (10:00)
[2017-10-29] MEDS: DULoxetine 30 MG CAPSULE PO SCH (10:00)
[2017-10-29] MEDS: LORATADINE 10 MG TABLET PO SCH (10:00)
[2017-10-29] MEDS: DOCUSATE SODIUM 100 MG CAPSULE PO SCH ×2 (10:00→22:14)
[2017-10-29] MEDS: OLODATEROL HCL INH SCH (10:01)
[2017-10-29] MEDS: ATENOLOL 50 MG TABLET PO SCH (10:01)
[2017-10-29] MEDS: ASPIRIN 325 MG ENTERIC COATED TABLET PO SCH ×2 (10:01→22:13)
[2017-10-29] MEDS: [UNRECOGNIZED DRUG - OTHER] INH SCH (10:01)
[2017-10-29] MEDS: SENNOSIDES 1 TABLET PO SCH (22:14)
[2017-10-30] MEDS: HYDROcodone/APAP 10/325MG TABLET PO PRN ×2 (04:54→09:35)
[2017-10-30] MEDS: 0.9 % SODIUM CHLORIDE 10 ML SYRINGE IV SCH (04:55)
[2017-10-30] MEDS: LACTOBACILLUS 1 CAPSULE PO SCH (09:36)
[2017-10-30] MEDS: DULoxetine 30 MG CAPSULE PO SCH (09:36)
[2017-10-30] MEDS: MULTIVIT,THER IRON,CA,FA & MIN 1 TABLET PO SCH (09:36)
[2017-10-30] MEDS: ASPIRIN 325 MG ENTERIC COATED TABLET PO SCH (09:37)
[2017-10-30] MEDS: LORATADINE 10 MG TABLET PO SCH (09:37)
[2017-10-30] MEDS: ATENOLOL 50 MG TABLET PO SCH (09:37)
[2017-10-30] MEDS: DOCUSATE SODIUM 100 MG CAPSULE PO SCH (09:37)
[2017-10-30] MEDS: [UNRECOGNIZED DRUG - OTHER] INH SCH (09:38)
[2017-10-30] MEDS: OLODATEROL HCL INH SCH (09:38)
[2017-10-30] MEDS: 0.45 % SODIUM CHLORIDE 1,000 ML IV SCH (14:19)
--- NOTE | 2017-11-22 12:43 | Discharge Summary ---
DATE OF ADMISSION: 10/26/2017 DATE OF DISCHARGE: 10/30/2017 ADMITTING DIAGNOSIS: Impacted left hip fracture. DISCHARGE DIAGNOSIS: Impacted left hip fracture with addition of status post left hip hemiarthroplasty. DISCHARGE CONDITION: Stable. CONSULTATIONS: None. PROCEDURE PERFORMED: Left hip hemiarthroplasty was completed on the date of admission. The procedure went without complications and there was minimal blood loss. Following the procedure the patient was taken to recovery room in stable condition. When deemed stable, was taken to the hospital floor for further observation and recovery. HISTORY OF PRESENT ILLNESS: This pleasant patient has exhausted conservative care measures in the office that has included trials with anti-inflammatories, pain medications, injections and physical therapy. The patient has discussed non-operative and operative options with Dr. Zaidi at length. Due to the exhausting conservative measures the patient desired to proceed forth with operative care. HOSPITAL COURSE: The patient remained stable throughout the hospital course and exhibited normal neurovascular examinations throughout the stay. The patient worked with physical therapy per standard protocols. The patient had no incidents during the hospital course. The patient also had a stable physical exam upon discharge. [facility]. DISCHARGE PHYSICAL EXAMINATION: VITAL SIGNS: Stable as above. GENERAL: Patient is awake, alert and oriented x3. HEENT: Head was normocephalic. NECK: Supple, no adenopathy or thyromegaly. CHEST: CTA, no wheezing, rhonchi or rales. HEART: NSR, no gallops, rubs or murmurs. MUSCULOSKELETAL: Lower extremities revealed grossly intact motor exam. NEUROLOGIC: Deep tendon response and light touch, motor, neurosensory exam was stable. SKIN: The incision was intact and the dressing had been changed to the Acticoat dressing. There were no abnormal skin markings, lesions, erythema, rashes or other skin breakdown. DISCHARGE INSTRUCTIONS/MEDICATIONS: The patient received our standard written discharge instruction sheet. These instructions included information regarding weightbearing status, activity level, diet, wound care, physical therapy instructions, bathing restrictions, shower recommendations, follow-up guidelines, driving restrictions and monitoring the wound for signs of infection that could include but not necessarily to fevers above 101.5, sweats, chills, redness, increased pain or drainage. Should any of these occur the patient was educated to contact our office at once. MEDICATIONS: The patient was restarted on normal primary care medications. Patient was also prescribed [place] 10/325 mg with instructions for 1 to 2 tabs by mouth every 4 to 6 hours as needed for pain, quantity 75 with 2 refills. The patient will be placed on 325 mg aspirin, 1 a day for 30 days post surgery. [facility] will monitor the patient's PT/INR. FOLLOWUP: Patient will follow up at [facility] 2 weeks from surgery for a postop wound check and staple removal. They will be able to certain follow up sooner with any problems or concerns. BAP:eve Job ID: [id number] Doc ID: [id number] Rashid Hall PA-C
== END 2017-10-30 13:07 | DRG 470 ==
LOC: MEDSUR 10:30
PROVIDERS: ADMIT Orthopaedic Surgery; ATTEND Orthopaedic Surgery
PROC: HEMIHIP (2017-10-26 14:50)